=== PATIENT | female | born 1995 | race Two or more races ===

== ENCOUNTER 2025-03-14 11:57 | Emergency (ER) | payer MEDICAID ==
[~2025-03-14] VITALS: Ht 162.6 cm; Wt 79.0 kg
[2025-03-14 12:06] VITALS: O2SAT 100
[2025-03-14 13:20] LABS: BASOPHILS % 0.3 % (0.0-2.0); EOSINOPHILS % 0.9 % (0.0-5.0); HEMATOCRIT. 40.6 % (36.0-48.0); HEMOGLOBIN. 12.7 g/dL (12.0-16.0); LYMPHOCYTES % 27.3 % (20.0-50.0); MEAN PLATELET VOLUME 7.8 fl (7.4-10.4); MONOCYTES % 6.6 % (2.0-8.0); NEUTROPHILS % 64.9 % (40.0-76.0); PLATELET 371 x1000/uL (130-400); RED BLOOD CELL COUNT 5.80 mill/uL (4.2-5.4); RED CELL DISTRIBUTION WIDTH 16.1 % (11.6-14.6)
[2025-03-14 13:24] LABS: CLARITY URINE CLEAR (CLEAR); COLOR URINE YELLOW (YELLOW); GLUCOSE URINE NEGATIVE (NEGATIVE); KETONES URINE NEGATIVE (NEGATIVE); LEUKOCYTE ESTERASE URINE NEGATIVE (NEGATIVE); NITRITE URINE NEGATIVE (NEGATIVE); OCCULT BLOOD URINE NEGATIVE (NEGATIVE); PH URINE 6.0 (4.5-8.0); PROTEIN URINE NEGATIVE (NEGATIVE); SPECIFIC GRAVITY URINE 1.004 (1.005-1.030); UROBILINOGEN URINE 0.2 E.U./dL (0.2-1.0)
[2025-03-14 13:42] LABS: CREATININE 0.8 mg/dL (0.6-1.0)
[2025-03-14 13:43] LABS: UREA NITROGEN BLOOD 8 mg/dL (9-23)
[2025-03-14 13:44] LABS: ASPARTATE AMINOTRANSFERASE 15 IU/L (<34)
[2025-03-14 13:45] LABS: BILIRUBIN DIRECT 0.3 mg/dL (<=3.0); BILIRUBIN TOTAL 1.0 mg/dL (0.1-1.0); PROTEIN TOTAL 8.2 g/dL (6.0-8.3)
[2025-03-14 14:12] LABS: B-HCG QUANTITATIVE < 1 mIU/mL (<6)
[2025-03-14 14:35] VITALS: BP 118/78; PULSE 57; RESP 12; TEMP 36.6; O2SAT 100
== END 2025-03-14 14:40 | disposition home or self-care (01) ==
LOC: ER 11:57 → CMPBEDREQ 12:22 → ER 14:40
DX: N93.9 Abnormal uterine and vaginal bleeding, unspecified (principal); N89.8 Other specified noninflammatory disorders of vagina; Z98.890 Other specified postprocedural states
CPT/HCPCS: 36415; 76830; 76856; 80048; 80076; 81003; 81025; 84702; 85025; 86850; 86900; 99284